=== PATIENT | female | born 1965 | race Caucasian/White ===

== ENCOUNTER 2017-11-04 18:34 | Inpatient (IN) | payer BC ==
[~2017-11-04] VITALS: Ht 149.9 cm; Wt 109.2 kg
[2017-11-04 20:45] VITALS: BP 202/97; PULSE 80; RESP 25; TEMP 98.3; O2SAT 96
[2017-11-04 21:00] VITALS: BP 200/102; PULSE 80; RESP 27; O2SAT 95
[2017-11-04] MEDS ORDERED: MAGNESIUM HYDROXIDE SUSP 30 ML CUP PO PRN (21:15)
[2017-11-04] MEDS ORDERED: ACETAMINOPHEN 325 MG TAB PO PRN (21:15)
[2017-11-04] MEDS ORDERED: ONDANSETRON HCL 4 MG/2 ML VIAL IV PUSH PRN (21:15)
[2017-11-04] MEDS ORDERED: RESP: ALBUTEROL 2.5 MG/IPRATROPIUM 0.5 MG NEB (PRN) INH (21:15)
[2017-11-04] MEDS ORDERED: niCARdipine INJ 25 MG in SODIUM CHLOR 0.9% 250 ML INJ 240 ML IV PRN (21:15)
[2017-11-04] MEDS ORDERED: SODIUM CHLORIDE 0.9% FLUSH 10 ML FLUSH IV FLUSH PRN (21:15)
[2017-11-04] MEDS ORDERED: MISCELLANEOUS NURSING INFORMATION XX SCH (21:15)
[2017-11-04] MEDS ORDERED: TEMAZEPAM 15 MG CAP PO PRN (21:15)
[2017-11-04] MEDS ORDERED: SENNOSIDES 8.6 MG TAB PO PRN (21:15)
[2017-11-04] MEDS ORDERED: CHLORHEXIDINE GLUCONATE 2 % 1 PACK (2 CLOTHS) TOP PRN (21:15)
[2017-11-04] MEDS ORDERED: BISACODYL 10 MG SUPP RECTAL PRN (21:15)
[2017-11-04] MEDS ORDERED: LACTULOSE SYRUP 20 GM/30 ML CUP PO PRN (21:15)
--- NOTE | 2017-11-04 21:20 | PD.CONS ---
HPI Service Critical Care Medicine Consult Requested By Primary Care Physician Non-Staff History of Present Illness Please disregard the note it was started in an error Past Family Social History Allergies: Coded Allergies: Penicillins (Verified Allergy, Severe, Hives, 11/04/17) morphine (Verified Allergy, Severe, Hives, 11/04/17) Kishore Hernandez MD Nov 04, 2017 9:20 pm
[2017-11-04 22:00] VITALS: BP 222/98; PULSE 75; RESP 30; O2SAT 92
[2017-11-04] MEDS: HEPARIN SODIUM - SQ 10,000 UNITS/ML VIAL SQ SCH (22:00)
[2017-11-04] MEDS: LABETALOL HCL 200 MG TAB PO SCH (22:02)
[2017-11-04] MEDS: hydrALAZINE HCL 20 MG/ML VIAL IV PUSH PRN (22:22)
--- NOTE | 2017-11-04 22:27 | HHI.HP ---
[facility] Service Critical Care Medicine Primary Care Physician Non-Staff Admission Diagnosis Diagnosis: Travel History International Travel<30 Days: No Contact w/Intl Traveler <30 Da: No Traveled to Known Affected Are: No History of Present Illness 52-year-old female with approximately 2 day history of frontal headache described as throbbing complaining of mild exertional dyspnea over the past 2 days patient denies any loss of consciousness denies visual changes or diplopia. Patient states she has not seen a physician in the past 10 years. In the emergency department triage patient's BP was noted to be 250/130 but she denies any history of hypertension she denies any history of cardiac disease. Denies any history of stroke. Review of Systems Constitutional: DENIES: Diaphoretic episodes, Fatigue, Fever, Weight gain, Weight loss, Chills, Dizziness, Change in appetite, Night Sweats Endocrine: DENIES: Abnorml menstrual pattern, Heat/cold intolerance, Polydipsia , Polyuria, Polyphagia Eyes: DENIES: Blurred vision, Diplopia, Eye inflammation, Eye pain, Vision loss , Photosensitivity, Double Vision Ears, nose, mouth, throat: DENIES: Tinnitus, Hearing loss, Vertigo, Nasal discharge, Oral lesions, Throat pain, Hoarseness, Ear Pain, Running Nose, Epistaxis, Sinus Pain, Toothache, Odynophagia Respiratory: COMPLAINS OF: Shortness of breath, DENIES: Apneas, Cough, Snoring , Wheezing, Hemoptysis, Sputum production Cardiovascular: DENIES: Chest pain, Palpitations, Syncope, Dyspnea on Exertion , PND, Lower Extremity Edema, Orthopnea, Claudication Gastrointestinal: DENIES: Abdominal pain, Black stools, Bloody stools, Constipation, Diarrhea, Nausea, Vomiting, Difficulty Swallowing, Anorexia Genitourinary: DENIES: Abnormal vaginal bleeding, Dysmenorrhea, Dyspareunia, Sexual dysfunction, Urinary frequency, Urinary incontinence, Urgency, Hematuria , Dysuria, Nocturia, Vaginal discharge Musculoskeletal: DENIES: Joint pain, Muscle aches, Stiffness, Joint Swelling, Back pain, Neck pain Integumentary: DENIES: Abnormal pigmentation, Pruritus, Rash, Nail changes, Breast masses, Breast skin changes, Nipple discharge Hematologic/lymphatic: DENIES: Bruising, Lymphadenopathy Immunologic/allergic: DENIES: Eczema, Urticaria Neurologic: COMPLAINS OF: Headache, DENIES: Abnormal gait, Localized weakness, Paresthesias, Seizures, Speech Problems, Tremor, Poor Balance Psychiatric: DENIES: Anxiety, Confusion, Mood changes, Depression, Hallucinations, Agitation, Suicidal Ideation, Homicidal Ideation, Delusions Past Family Social History Allergies: Coded Allergies: Penicillins (Verified Allergy, Severe, Hives, 11/04/17) morphine (Verified Allergy, Severe, Hives, 11/04/17) Past Medical History None Past Surgical History C-spine fusion for herniated disc Reported Medications Reported Meds & Active Scripts Active No Active Prescriptions or Reported Medications Active Ordered Medications Current Medications Medications (Trade) Dose Ordered Sig/Bernie Route PRN Reason Start Time Stop Time Status Last Admin Dose Admin Nicardipine HCl 25 mg/Sodium Chloride 250 ml @ 50 mls/hr TITRATE PRN IV Blood pressure management 11/04/17 21:15 Sodium Chloride (NS Flush) 2 ml UNSCH PRN IV FLUSH FLUSH AFTER USING IV ACCESS 11/04/17 21:15 Sodium Chloride (NS Flush) 2 ml BID IV FLUSH 11/05/17 09:00 Acetaminophen (Tylenol) 650 mg Q6H PRN PO PAIN 1-10 AND/OR FEVER >101F 11/04/17 21:15 Famotidine (Pepcid Inj) 20 mg Q12HR IV PUSH 11/05/17 09:00 Ondansetron HCl (Zofran Inj) 4 mg Q6H PRN IV PUSH NAUSEA OR VOMITING 11/04/17 21:15 Temazepam (Restoril) 15 mg HS PRN PO INSOMNIA 11/04/17 21:15 Albuterol/ Ipratropium (Duoneb Neb) 1 ampule Q2HR NEB PRN INH WHEEZING 11/04/17 21:15 Heparin Sodium (Porcine) (Heparin Inj) 5,000 units Q8H SQ 11/04/17 22:00 Miscellaneous Information 1 Q361D XX 11/04/17 21:15 11/04/17 21:15 Chlorhexidine Gluconate (Chlorhexidine 2% Cloth) 3 pack Taper DAILY@04 TOP 11/05/17 04:00 11/01/18 03:59 Chlorhexidine Gluconate (Chlorhexidine 2% Cloth) 3 pack UNSCH PRN TOP HYGIENIC CARE 11/04/17 21:15 Senna/Docusate Sodium (Jannie-Colace) 1 tab BID PO 11/05/17 09:00 Magnesium Hydroxide (Milk Of Magnesia Liq) 30 ml Q12H PRN PO Mild constipation 11/04/17 21:15 Sennosides (Senokot) 17.2 mg Q12H PRN PO Moderate constipation 11/04/17 21:15 Bisacodyl (Dulcolax Supp) 10 mg DAILY PRN RECTAL SEVERE CONSITIPATION 11/04/17 21:15 Lactulose (Lactulose Liq) 30 ml DAILY PRN PO SEVERE CONSITIPATION 11/04/17 21:15 Labetalol HCl (Trandate) 200 mg Q12HR PO 11/04/17 21:30 11/04/17 22:02 Amlodipine Besylate (Norvasc) 10 mg DAILY PO 11/04/17 21:30 11/04/17 21:54 Labetalol HCl (Trandate Inj) 10 mg Q4H PRN IV PUSH SBP> OR = 180, DBP> OR = 100 11/04/17 21:30 Hydralazine HCl (Apresoline Inj) 20 mg Q4H PRN IV PUSH SBP>180, DBP>100, HR>65 11/04/17 21:30 11/04/17 22:22 Family History No family history of early coronary artery disease or strokes Social History Negative for tobacco, alcohol or illicit drug abuse Physical Exam Physical Exam GENERAL: Well-nourished, well-developed obese patient. SKIN: Warm and dry. HEAD: Normocephalic. EYES: No scleral icterus. No injection or drainage. NECK: Supple, trachea midline. No JVD or lymphadenopathy. CARDIOVASCULAR: Regular rate and rhythm without murmurs, gallops, or rubs. RESPIRATORY: Breath sounds equal bilaterally. No accessory muscle use. GASTROINTESTINAL: Abdomen soft, non-tender, nondistended. MUSCULOSKELETAL: No cyanosis, or edema. BACK: Nontender without obvious deformity. NEURO EXAM: GCS:15 Mental Status: The patient is alert and oriented to person, place, and time with normal speech. Cranial Nerves: Visual acuity intact bilaterally. Visual prieto normal in all quadrants. Pupils are round, reactive to light. Extraocular movements are intact without ptosis. Hearing is normal bilaterally. Voice is normal. Tongue protrudes midline and moves symmetrically. Reflexes: Biceps, patellar, and Achilles are 2/4 bilaterally. No clonus. Sensation: Sensation is intact bilaterally to pain and light touch. Two-point discrimination is intact. Motor: Good muscle tone. Strength is 5/5 bilaterally. Cerebellar: [id number] and [id number] test normal bilaterally. Laboratory Laboratory Tests Test 11/04/17 21:02 Septic Shock Reassessment Septic shock perfusion: reassessment completed Caprini VTE Risk Assessment Caprini VTE Risk Assessment: Mod/High Risk (score >= 2) Caprini Risk Assessment Model Point Value = 1 Point Value = 2 Point Value = 3 Point Value = 5 Age 41-60 Minor surgery BMI > 25 kg/m2 Swollen legs Varicose veins or History of unexplained or recurrent spontaneous Oral contraceptives or hormone replacement Sepsis (< 1 month) Serious lung disease, including pneumonia (< 1 month) Abnormal pulmonary function Acute myocardial infarction Congestive heart failure (< 1 month) History of inflammatory bowel disease Medical patient at bed rest Age 61-74 Arthroscopic surgery Major open surgery (> 45 min) Laparoscopic surgery (> 45 min) Malignancy Confined to bed (> 72 hours) Immobilizing plaster cast Central venous access Age >= 75 History of VTE Family history of VTE Factor V Leiden Prothrombin [id number] Lupus anticoagulant Anticardiolipin antibodies Elevated serum homocysteine Heparin-induced thrombocytopenia Other congenital or acquired thrombophilia Stroke (< 1 month) Elective arthroplasty Hip, pelvis, or leg fracture Acute spinal cord injury (< 1 month) Prophylaxis Regimen Total Risk Factor Score Risk Level Prophylaxis Regimen 0-1 Low Early ambulation 2 Moderate Order ONE of the following: *Sequential Compression Device (SCD) *Heparin 5000 units SQ BID 3-4 Higher Order ONE of the following medications: *Heparin 5000 units SQ TID *Enoxaparin/Lovenox 40 mg SQ daily (WT < 150 kg, CrCl > 30 mL/min) *Enoxaparin/Lovenox 30 mg SQ daily (WT < 150 kg, CrCl > 10-29 mL/min) *Enoxaparin/Lovenox 30 mg SQ BID (WT < 150 kg, CrCl > 30 mL/min) AND/OR *Sequential Compression Device (SCD) 5 or more Highest Order ONE of the following medications: *Heparin 5000 units SQ TID (Preferred with Epidurals) *Enoxaparin/Lovenox 40 mg SQ daily (WT < 150 kg, CrCl > 30 mL/min) *Enoxaparin/Lovenox 30 mg SQ daily (WT < 150 kg, CrCl > 10-29 mL/min) *Enoxaparin/Lovenox 30 mg SQ BID (WT < 150 kg, CrCl > 30 mL/min) AND *Sequential Compression Device (SCD) Assessment and Plan Assessment and Plan Hypertensive urgency - Initial blood pressure 250/130 - The goal to lower by 25% first 24 hours - Will use labetalol and hydralazine when necessary - Start patient on labetalol and Norvasc - Nicardipine drip when necessary to keep BP goals Throbbing headaches - CT head pending - Tylenol when necessary DVT GI prophylaxis - Teds SCDs - Subcutaneous heparin - Pepcid Critical Care: The total critical care time was 35 minutes. Time to perform other separately billable procedures was not included in the critical care time. Kishore Hernandez MD Nov 04, 2017 10:27 pm
[2017-11-04 23:00] VITALS: BP 171/77; PULSE 80; RESP 24; O2SAT 96
--- NOTE | 2017-11-04 23:38 | RADRPT ---
EXAM DATE/TIME: 11/04/2017 23:28 [place] COMPARISON: No previous studies available for comparison. INDICATIONS : Dizziness; hypertensive. RADIATION DOSE: 38.03 CTDIvol (mGy) MEDICAL HISTORY : Hypertension. SURGICAL HISTORY : None. ENCOUNTER: Initial ACUITY: 1 day PAIN SCALE: 0/10 LOCATION: cranial TECHNIQUE: Multiple contiguous axial images were obtained of the head. Using automated exposure control and adj ustment of the mA and/or kV according to patient size, radiation dose was kept as low as reasonably a chievable to obtain optimal diagnostic quality images. DICOM format image data is available electro nically for review and comparison. FINDINGS: CEREBRUM: The ventricles are normal for age. No evidence of midline shift, mass lesion, hemorrhage or acute in farction. No extra-axial fluid collections are seen. POSTERIOR FOSSA: The cerebellum and brainstem are intact. The 4th ventricle is midline. The cerebellopontine angle i s unremarkable. EXTRACRANIAL: The visualized portion of the orbits is intact. SKULL: The calvaria is intact. No evidence of skull fracture. CONCLUSION: Normal examination for a patient of this age. Gopi Gonzales MD on November 04, 2017 at 23:35 Board Certified Radiologist. This report was verified electronically.
[2017-11-05] VITALS (14 sets, daily range): BP systolic 125–195; BP diastolic 70–88; PULSE 62–80; RESP 16–39; TEMP 96.8–98.5; O2SAT 92–97
[2017-11-05] MEDS: LABETALOL HCL 100 MG/20 ML VIAL IV PUSH PRN ×3 (03:11→20:11)
[2017-11-05] MEDS: CHLORHEXIDINE GLUCONATE 2 % 1 PACK (2 CLOTHS) TOP SCH (04:00)
[2017-11-05 04:05] LABS: BASOPHIL # 0.1 TH/MM3 (0-0.2); BASOPHIL % 0.7 % (0.0-2.0); EOSINOPHIL # 0.2 TH/MM3 (0-0.4); EOSINOPHIL % 1.2 % (0.0-4.0); HEMATOCRIT 35.9 % (35.0-46.0); HEMOGLOBIN 12.2 GM/DL (11.6-15.3); LYMPH % 18.5 % (9.0-44.0); LYMPHOCYTE # 2.7 TH/MM3 (1.0-4.8); MEAN CELL VOLUME 84.1 FL (80.0-100.0); MEAN CORPUSCULAR HEMOGLOBIN 28.6 PG (27.0-34.0); MEAN PLATELET VOLUME 9.1 FL (7.0-11.0); MONO % 4.8 % (0.0-8.0); MONOCYTE # 0.7 TH/MM3 (0-0.9); NEUT % 74.8 % (16.0-70.0); PLATELET COUNT 273 TH/MM3 (150-450); RED BLOOD COUNT 4.27 MIL/MM3 (4.00-5.30); RED CELL DISTRIBUTION WIDTH 15.1 % (11.6-17.2); WHITE BLOOD COUNT 14.7 TH/MM3 (4.0-11.0)
[2017-11-05 04:17] LABS: INTERNATIONAL NORMALIZED RATIO 1.1 RATIO; PROTHROMBIN TIME - PATIENT 10.8 SEC (9.8-11.6)
[2017-11-05 04:25] LABS: ALBUMIN 3.3 GM/DL (3.4-5.0); AST (GOT) 27 U/L (15-37); BLOOD UREA NITROGEN 15 MG/DL (7-18); CALCIUM 8.5 MG/DL (8.5-10.1); CHLORIDE 107 MEQ/L (98-107); CREATININE 0.69 MG/DL (0.50-1.00); GLOMERULAR FILTRATION RATE 89 ML/MIN (>89); GLUCOSE,RANDOM 108 MG/DL (74-106); MAGNESIUM 2.3 MG/DL (1.5-2.5); PHOSPHORUS 3.6 MG/DL (2.5-4.9); SODIUM (NA) 141 MEQ/L (136-145)
[2017-11-05 04:38] LABS: ALKALINE PHOSPHATASE 85 U/L (45-117); ALT (GPT) 50 U/L (10-53); TOTAL BILIRUBIN ADULT 0.5 MG/DL (0.2-1.0); TOTAL PROTEIN 7.1 GM/DL (6.4-8.2)
[2017-11-05] MEDS: HEPARIN SODIUM - SQ 10,000 UNITS/ML VIAL SQ SCH ×3 (06:00→21:07)
[2017-11-05] MEDS: DOCUSATE SODIUM 50 MG/SENNA 8.6 MG TAB PO SCH ×2 (10:07→21:07)
[2017-11-05] MEDS: LABETALOL HCL 200 MG TAB PO SCH ×3 (10:07→21:07)
[2017-11-05] MEDS: SODIUM CHLORIDE 0.9% FLUSH 10 ML FLUSH IV FLUSH SCH ×2 (10:07→21:00)
[2017-11-05] MEDS: FAMOTIDINE 20 MG/2 ML VIAL IV PUSH SCH ×2 (10:07→21:07)
[2017-11-05] MEDS: hydrALAZINE HCL 20 MG/ML VIAL IV PUSH PRN (12:20)
--- NOTE | 2017-11-05 14:44 | HHI.CCPN ---
Subjective Remarks/Hospital Course 52-year-old female with approximately 2 day history of frontal headache described as throbbing complaining of mild exertional dyspnea over the past 2 days patient denies any loss of consciousness denies visual changes or diplopia. Patient states she has not seen a physician in the past 10 years. In the emergency department triage patient's BP was noted to be 250/130 but she denies any history of hypertension she denies any history of cardiac disease. Denies any history of stroke. Subjective: 11/05: No acute events overnight. Oral antihypertensive medications instituted. Labetalol frequency increased to every 6 hours. Patient tolerating diet. Objective Vital Signs Date Time Temp Pulse Resp B/P (MAP) Pulse Ox O2 Delivery O2 Flow Rate FiO2 11/05/17 08:00 98.5 71 26 179/84 (115) 93 Intake and Output 11/05/17 11/05/17 11/06/17 08:00 16:00 00:00 Intake Total 720 ml Balance 720 ml Result Diagram: 11/05/17 0330 11/05/17 0330 Imaging Last Impressions Head CT 11/04/17 0000 Signed Impressions: Service Date/Time: Saturday, November 04, 2017 23:28 - CONCLUSION: Normal examination for a patient of this age. Gopi Gonzales MD Objective Remarks GENERAL: Well-nourished, well-developed obese patient, nothing up in bed eating lunch in no apparent distress SKIN: Warm and dry. HEAD: Normocephalic. EYES: No scleral icterus. No injection or drainage. NECK: Supple, trachea midline. No JVD or lymphadenopathy. CARDIOVASCULAR: Regular rate and rhythm without murmurs, gallops, or rubs. RESPIRATORY: Breath sounds equal bilaterally. No accessory muscle use. GASTROINTESTINAL: Abdomen soft, non-tender, protuberant, nondistended. MUSCULOSKELETAL: No cyanosis, or edema. BACK: Nontender without obvious deformity. NEURO EXAM: GCS:15 Mental Status: The patient is alert and oriented to person, place, and time with normal speech. Cranial Nerves: Visual acuity intact bilaterally. Visual prieto normal in all quadrants. Pupils are round, reactive to light. Extraocular movements are intact without ptosis. Hearing is normal bilaterally. Voice is normal. Tongue protrudes midline and moves symmetrically. Reflexes: Biceps, patellar, and Achilles are 2/4 bilaterally. No clonus. Sensation: Sensation is intact bilaterally to pain and light touch. Two-point discrimination is intact. Motor: Good muscle tone. Strength is 5/5 bilaterally. Cerebellar: [id number]-[id number] and nceb-[id number] test normal bilaterally. A/P Assessment and Plan Hypertensive urgency-resolved - Initial blood pressure 250/130 - The goal to lower by 25% first 24 hours - Will use labetalol and hydralazine when necessary - labetalol 200 mg every 6 hours and Norvasc 10 mg daily - Nicardipine drip is continued Throbbing headaches-resolved - 11/04 CT head-negative - Tylenol when necessary DVT GI prophylaxis - Teds SCDs - Subcutaneous heparin - Pepcid Critical Care: Level II follow-up Planned transfer to [facility]., planned transfer to [facility] floor when bed available. Physician Kavitha Jimenez MD Nov 05, 2017 14:44
[2017-11-06] VITALS (8 sets, daily range): BP systolic 145–195; BP diastolic 65–89; PULSE 70–80; RESP 18–26; TEMP 98.1–98.9; O2SAT 88–97
[2017-11-06] MEDS: hydrALAZINE HCL 20 MG/ML VIAL IV PUSH PRN (00:35)
[2017-11-06] MEDS: LABETALOL HCL 200 MG TAB PO SCH ×4 (03:00→22:07)
[2017-11-06] MEDS: CHLORHEXIDINE GLUCONATE 2 % 1 PACK (2 CLOTHS) TOP SCH (04:00)
[2017-11-06] MEDS: HEPARIN SODIUM - SQ 10,000 UNITS/ML VIAL SQ SCH ×3 (05:52→22:09)
[2017-11-06] MEDS: DOCUSATE SODIUM 50 MG/SENNA 8.6 MG TAB PO SCH ×2 (08:48→21:00)
[2017-11-06] MEDS: FAMOTIDINE 20 MG/2 ML VIAL IV PUSH SCH ×2 (08:48→22:08)
[2017-11-06] MEDS: SODIUM CHLORIDE 0.9% FLUSH 10 ML FLUSH IV FLUSH SCH ×2 (08:48→22:08)
[2017-11-06 14:07] LABS: HEMOGLOBIN 12.2 GM/DL (11.6-15.3); MEAN CELL VOLUME 85.2 FL (80.0-100.0); MEAN CORPUSCULAR HEMOGLOBIN 28.9 PG (27.0-34.0); MEAN CORPUSCULAR HGB CONC 33.9 % (32.0-36.0); MEAN PLATELET VOLUME 9.2 FL (7.0-11.0); PLATELET COUNT 274 TH/MM3 (150-450); RED BLOOD COUNT 4.23 MIL/MM3 (4.00-5.30); RED CELL DISTRIBUTION WIDTH 15.6 % (11.6-17.2); WHITE BLOOD COUNT 13.2 TH/MM3 (4.0-11.0)
[2017-11-06 14:28] LABS: BICARBONATE 24.9 MEQ/L (21.0-32.0); BLOOD UREA NITROGEN 19 MG/DL (7-18); CALCIUM 9.1 MG/DL (8.5-10.1); CHLORIDE 106 MEQ/L (98-107); CREATININE 0.72 MG/DL (0.50-1.00); GLOMERULAR FILTRATION RATE 85 ML/MIN (>89); GLUCOSE,RANDOM 98 MG/DL (74-106); SODIUM (NA) 138 MEQ/L (136-145)
[2017-11-06 16:36] LABS: HEMOGLOBIN A1C 5.4 % (4.3-6.0)
[2017-11-06] MEDS ORDERED: DOXAZOSIN MESYLATE 2 MG TAB PO ONE (16:45)
--- NOTE | 2017-11-06 17:42 | HHI.PR ---
Subjective Remarks Denies cp/sob. BP still elevated into the 160's systolic bp. Objective Vitals Vital Signs Date Time Temp Pulse Resp B/P (MAP) Pulse Ox O2 Delivery O2 Flow Rate FiO2 11/06/17 12:00 80 11/06/17 12:00 98.3 72 21 166/80 (108) 96 11/06/17 10:00 80 11/06/17 08:00 98.1 78 24 150/71 (97) 95 11/06/17 08:00 78 11/06/17 04:00 98.3 75 25 145/65 (91) 88 11/06/17 00:00 98.4 76 26 195/89 (124) 95 11/05/17 20:00 98.0 80 30 184/77 (112) 95 11/05/17 18:00 72 I/O 11/05/17 11/05/17 11/05/17 11/06/17 11/06/17 11/06/17 07:00 15:00 23:00 07:00 15:00 23:00 Intake Total 720 ml 675 ml 480 ml Balance 720 ml 675 ml 480 ml Intake Oral 720 ml 675 ml 480 ml # Voids 10 9 6 # Bowel Movements 2 0 Result Diagram: 11/06/17 1332 11/06/17 1332 Imaging Last Impressions Head CT 11/04/17 0000 Signed Impressions: Service Date/Time: Saturday, November 04, 2017 23:28 - CONCLUSION: Normal examination for a patient of this age. Gopi Gonzales MD Objective Remarks NAD AAox3 obese Clear lungs S1S2 RRR, no MRG no edema in extremities or JVD Medications and IVs Current Medications Medications (Trade) Dose Ordered Sig/Bernie Route Start Time Stop Time Status Last Admin (NS Flush) 2 ml UNSCH PRN IV FLUSH 11/04/17 21:15 (NS Flush) 2 ml BID IV FLUSH 11/05/17 09:00 11/06/17 08:48 (Tylenol) 650 mg Q6H PRN PO 11/04/17 21:15 (Pepcid Inj) 20 mg Q12HR IV PUSH 11/05/17 09:00 11/06/17 08:48 (Zofran Inj) 4 mg Q6H PRN IV PUSH 11/04/17 21:15 (Restoril) 15 mg HS PRN PO 11/04/17 21:15 (Duoneb Neb) 1 ampule Q2HR NEB PRN INH 11/04/17 21:15 (Heparin Inj) 5,000 units Q8H SQ 11/04/17 22:00 11/06/17 14:14 Miscellaneous Information 1 Q361D XX 11/04/17 21:15 11/04/17 21:15 (Chlorhexidine 2% Cloth) 3 pack Taper DAILY@04 TOP 11/05/17 04:00 11/01/18 03:59 11/06/17 04:00 (Chlorhexidine 2% Cloth) 3 pack UNSCH PRN TOP 11/04/17 21:15 (Jannie-Colace) 1 tab BID PO 11/05/17 09:00 11/05/17 21:07 (Milk Of Magnesia Liq) 30 ml Q12H PRN PO 11/04/17 21:15 (Senokot) 17.2 mg Q12H PRN PO 11/04/17 21:15 (Dulcolax Supp) 10 mg DAILY PRN RECTAL 11/04/17 21:15 (Lactulose Liq) 30 ml DAILY PRN PO 11/04/17 21:15 (Norvasc) 10 mg DAILY PO 11/04/17 21:30 11/06/17 08:47 (Apresoline Inj) 20 mg Q4H PRN IV PUSH 11/04/17 21:30 11/06/17 00:35 (Trandate) 200 mg Q6H PO 11/05/17 15:00 11/06/17 14:15 (Cardura) 2 mg DAILY PO 11/07/17 09:00 A/P Problem List: (1) Hypertensive urgency ICD Code: I16.0 - Hypertensive urgency Status: Resolved (2) Headache ICD Code: R51 - Headache Status: Resolved Assessment and Plan Hypertensive urgency-resolved - Initial blood pressure 250/130 - The goal to lower by 25% first 24 hours - Will use labetalol and hydralazine when necessary - labetalol 200 mg every 6 hours and Norvasc 10 mg daily - Nicardipine drip is continued 11/06 BP still elevated. Will add Cardura 2 mg po daily and continue amlodipine and Labetalol. Patient still required IV PRN medication today. Throbbing headaches-resolved - 11/04 CT head-negative - Tylenol when necessary 11/06 Stable. RUST resolved. DVT GI prophylaxis - Teds SCDs - Subcutaneous heparin - Pepcid Discharge Planning DC pending bp improvement. Possible DC in am. Jorge Katz MD Nov 06, 2017 17:42
[2017-11-06 23:26] LABS: BILIRUBIN, URINE NEG (NEG); BLOOD, URINE NEG (NEG); GLUCOSE,URINE NEG (NEG); KETONE, URINE NEG (NEG); NITRITE,URINE NEG (NEG); PH, URINE 5.5 (5.0-8.5); SQUAMOUS EPITHELIAL CELL URINE 2 /hpf (0-5); URINE COLOR LIGHT-YELLOW (YELLW/STRAW); URINE LEUKOCYTE ESTERASE SMALL (NEG)
[2017-11-07] VITALS (13 sets, daily range): BP systolic 141–184; BP diastolic 63–94; PULSE 57–78; RESP 18–20; TEMP 97.2–98.5; O2SAT 93–97
[2017-11-07] MEDS: LABETALOL HCL 200 MG TAB PO SCH ×4 (03:48→21:42)
[2017-11-07] MEDS: CHLORHEXIDINE GLUCONATE 2 % 1 PACK (2 CLOTHS) TOP SCH (03:55)
[2017-11-07] MEDS: HEPARIN SODIUM - SQ 10,000 UNITS/ML VIAL SQ SCH ×3 (05:14→21:44)
[2017-11-07] MEDS: SODIUM CHLORIDE 0.9% FLUSH 10 ML FLUSH IV FLUSH SCH ×2 (07:28→21:44)
[2017-11-07] MEDS: FAMOTIDINE 20 MG/2 ML VIAL IV PUSH SCH ×2 (08:22→21:00)
[2017-11-07] MEDS: DOCUSATE SODIUM 50 MG/SENNA 8.6 MG TAB PO SCH ×2 (08:22→21:00)
[2017-11-07] MEDS ORDERED: DOXAZOSIN MESYLATE 2 MG TAB PO SCH (09:00)
[2017-11-07 09:12] LABS: AUTOMATED NEUTROPHIL # 7.4 TH/MM3 (1.8-7.7); BASOPHIL # 0.1 TH/MM3 (0-0.2); BASOPHIL % 1.3 % (0.0-2.0); EOSINOPHIL # 0.4 TH/MM3 (0-0.4); EOSINOPHIL % 3.4 % (0.0-4.0); HEMATOCRIT 35.1 % (35.0-46.0); HEMOGLOBIN 11.7 GM/DL (11.6-15.3); MEAN CELL VOLUME 86.1 FL (80.0-100.0); MEAN CORPUSCULAR HEMOGLOBIN 28.7 PG (27.0-34.0); MEAN CORPUSCULAR HGB CONC 33.4 % (32.0-36.0); MEAN PLATELET VOLUME 9.3 FL (7.0-11.0); MONO % 6.9 % (0.0-8.0); MONOCYTE # 0.7 TH/MM3 (0-0.9); NEUT % 69.4 % (16.0-70.0); PLATELET COUNT 230 TH/MM3 (150-450); RED BLOOD COUNT 4.07 MIL/MM3 (4.00-5.30); RED CELL DISTRIBUTION WIDTH 14.7 % (11.6-17.2); WHITE BLOOD COUNT 10.7 TH/MM3 (4.0-11.0)
[2017-11-07 09:47] LABS: ALKALINE PHOSPHATASE 78 U/L (45-117); ALT (GPT) 38 U/L (10-53); PHOSPHORUS 4.5 MG/DL (2.5-4.9); TOTAL BILIRUBIN ADULT 0.6 MG/DL (0.2-1.0); TOTAL PROTEIN 6.9 GM/DL (6.4-8.2)
[2017-11-07 09:57] LABS: ALBUMIN 3.2 GM/DL (3.4-5.0); AST (GOT) 45 U/L (15-37); BICARBONATE 23.8 MEQ/L (21.0-32.0); BLOOD UREA NITROGEN 18 MG/DL (7-18); CALCIUM 8.7 MG/DL (8.5-10.1); CHLORIDE 107 MEQ/L (98-107); CREATININE 0.85 MG/DL (0.50-1.00); GLOMERULAR FILTRATION RATE 70 ML/MIN (>89); GLUCOSE,RANDOM 104 MG/DL (74-106); MAGNESIUM 2.6 MG/DL (1.5-2.5); SODIUM (NA) 139 MEQ/L (136-145)
--- NOTE | 2017-11-07 13:10 | HHI.PR ---
Subjective Remarks BP still severely elevated. Patient denies cp/sob. Objective Vitals Vital Signs Date Time Temp Pulse Resp B/P (MAP) Pulse Ox O2 Delivery O2 Flow Rate FiO2 11/07/17 10:34 71 11/07/17 08:00 98.2 77 20 184/87 (119) 97 11/07/17 05:11 70 18 141/63 (89) 11/07/17 04:00 66 11/07/17 03:34 98.3 72 18 180/81 (114) 95 11/07/17 00:11 98.5 76 18 173/77 (109) 93 11/07/17 00:00 78 11/06/17 21:34 98.6 70 18 181/82 (115) 97 11/06/17 20:00 73 11/06/17 16:00 98.9 73 20 162/83 (109) 96 I/O 11/06/17 11/06/17 11/06/17 11/07/17 11/07/17 11/07/17 07:00 15:00 23:00 07:00 15:00 23:00 Intake Total 480 ml 480 ml Output Total 900 ml Balance 480 ml -420 ml Intake Oral 480 ml 480 ml Output Urine Total 900 ml # Voids 6 # Bowel Movements 0 0 Result Diagram: 11/07/17 0855 11/07/17 0855 Imaging Last Impressions Head CT 11/04/17 0000 Signed Impressions: Service Date/Time: Saturday, November 04, 2017 23:28 - CONCLUSION: Normal examination for a patient of this age. Gopi Gonzales MD Objective Remarks NAD AAox3 obese Clear lungs S1S2 RRR, no MRG no edema in extremities or JVD Medications and IVs Current Medications Medications (Trade) Dose Ordered Sig/Bernie Route Start Time Stop Time Status Last Admin (NS Flush) 2 ml UNSCH PRN IV FLUSH 11/04/17 21:15 (NS Flush) 2 ml BID IV FLUSH 11/05/17 09:00 11/07/17 07:28 (Tylenol) 650 mg Q6H PRN PO 11/04/17 21:15 (Pepcid Inj) 20 mg Q12HR IV PUSH 11/05/17 09:00 11/07/17 08:22 (Zofran Inj) 4 mg Q6H PRN IV PUSH 11/04/17 21:15 (Restoril) 15 mg HS PRN PO 11/04/17 21:15 11/07/17 01:00 (Duoneb Neb) 1 ampule Q2HR NEB PRN INH 11/04/17 21:15 (Heparin Inj) 5,000 units Q8H SQ 11/04/17 22:00 11/06/17 22:09 Miscellaneous Information 1 Q361D XX 11/04/17 21:15 11/04/17 21:15 (Chlorhexidine 2% Cloth) 3 pack Taper DAILY@04 TOP 11/05/17 04:00 11/01/18 03:59 11/06/17 04:00 (Chlorhexidine 2% Cloth) 3 pack UNSCH PRN TOP 11/04/17 21:15 (Jannie-Colace) 1 tab BID PO 11/05/17 09:00 11/07/17 08:22 (Milk Of Magnesia Liq) 30 ml Q12H PRN PO 11/04/17 21:15 (Senokot) 17.2 mg Q12H PRN PO 11/04/17 21:15 (Dulcolax Supp) 10 mg DAILY PRN RECTAL 11/04/17 21:15 (Lactulose Liq) 30 ml DAILY PRN PO 11/04/17 21:15 (Norvasc) 10 mg DAILY PO 11/04/17 21:30 11/07/17 08:22 (Apresoline Inj) 20 mg Q4H PRN IV PUSH 11/04/17 21:30 11/06/17 00:35 (Trandate) 200 mg Q6H PO 11/05/17 15:00 11/07/17 08:22 (Cardura) 2 mg DAILY PO 11/07/17 09:00 11/07/17 08:22 A/P Problem List: (1) Hypertensive urgency ICD Code: I16.0 - Hypertensive urgency Status: Resolved (2) Headache ICD Code: R51 - Headache Status: Resolved Assessment and Plan Hypertensive urgency-resolved - Initial blood pressure 250/130 - The goal to lower by 25% first 24 hours - Will use labetalol and hydralazine when necessary - Started initially on labetalol 200 mg every 6 hours and Norvasc 10 mg daily - Nicardipine drip is continued 11/06 BP still elevated. Will add Cardura 2 mg po daily and continue amlodipine and Labetalol. Patient still required IV PRN medication today. 11/07 pressure still severely elevated in the 180 systolic. Increase Cardura to 4 milligrams p.o. daily. I will also change labetalol to 1400 mg p.o. 3 times daily. Continue hydralazine as needed and continue amlodipine 10 minutes p.o. daily. Throbbing headaches-resolved - 11/04 CT head-negative - Tylenol when necessary 11/06 Stable. RUST resolved. DVT GI prophylaxis - Teds SCDs - Subcutaneous heparin - Pepcid Discharge Planning DC pending bp improvement. Possible DC in am. Jorge Katz MD Nov 07, 2017 13:10
[2017-11-07] MEDS ORDERED: DOXAZOSIN MESYLATE 2 MG TAB PO ONE (13:15)
[2017-11-08] VITALS: BP 128/60; PULSE 66; PULSE 69; RESP 18; TEMP 97.8; O2SAT 97
[2017-11-08] MEDS: CHLORHEXIDINE GLUCONATE 2 % 1 PACK (2 CLOTHS) TOP SCH (03:28)
[2017-11-08 04:00] VITALS: PULSE 61
[2017-11-08] MEDS: HEPARIN SODIUM - SQ 10,000 UNITS/ML VIAL SQ SCH ×2 (05:13→15:03)
[2017-11-08] MEDS: LABETALOL HCL 200 MG TAB PO SCH ×2 (05:59→15:02)
[2017-11-08 08:00] VITALS: BP 140/69; PULSE 54; RESP 18; TEMP 97.6; O2SAT 95
[2017-11-08 08:25] LABS: BICARBONATE 23.4 MEQ/L (21.0-32.0); CALCIUM 8.2 MG/DL (8.5-10.1); CREATININE 0.75 MG/DL (0.50-1.00)
[2017-11-08] MEDS: DOCUSATE SODIUM 50 MG/SENNA 8.6 MG TAB PO SCH (09:00)
[2017-11-08] MEDS ORDERED: DOXAZOSIN MESYLATE 4 MG TAB PO SCH (09:00)
[2017-11-08] MEDS: SODIUM CHLORIDE 0.9% FLUSH 10 ML FLUSH IV FLUSH SCH (09:00)
[2017-11-08] MEDS: FAMOTIDINE 20 MG/2 ML VIAL IV PUSH SCH (09:00)
[2017-11-08 10:30] VITALS: BP_SYST 153; BP_SYST 170; BP_DIAS 82; BP_DIAS 88; PULSE 72
[2017-11-08 11:59] VITALS: BP 167/87; PULSE 61; RESP 17; TEMP 97.8; O2SAT 98
[2017-11-08] MEDS ORDERED: CARD4TAB2 PO (13:14)
[2017-11-08] MEDS ORDERED: AMLO10 PO (13:14)
[2017-11-08] MEDS ORDERED: LABE200T2 PO (13:14)
--- NOTE | 2017-11-08 13:26 | HHI.PR ---
Subjective Remarks Follow-up hypertensive urgency 11/08/17-patient seen and examined, she denies any chest pain, shortness of breath. She denies any heart palpitation. Discussed with patient regarding lifestyle modification. states, she has initial visit with Objective Vitals Vital Signs Date Time Temp Pulse Resp B/P (MAP) Pulse Ox O2 Delivery O2 Flow Rate FiO2 11/08/17 11:59 97.8 61 17 167/87 (113) 98 11/08/17 10:30 153/82 (105) 170/88 (115) 11/08/17 10:30 72 153/82 (105) 170/88 (115) 11/08/17 08:00 97.6 54 18 140/69 (92) 95 11/08/17 04:00 61 11/08/17 00:00 66 11/08/17 00:00 97.8 69 18 128/60 (82) 97 11/07/17 20:00 98.0 76 18 157/94 (115) 96 11/07/17 20:00 Room Air 11/07/17 18:24 178/80 (112) Automatic Cuff 11/07/17 16:34 57 11/07/17 16:00 97.2 65 20 175/80 (111) 96 I/O 11/07/17 11/07/17 11/07/17 11/08/17 11/08/17 11/08/17 07:00 15:00 23:00 07:00 15:00 23:00 Intake Total 480 ml 720 ml 240 ml Output Total 900 ml 600 ml 900 ml Balance -420 ml 120 ml -660 ml Intake Oral 480 ml 720 ml 240 ml Output Urine Total 900 ml 600 ml 900 ml # Bowel Movements 0 1 0 Result Diagram: 11/07/17 0855 11/08/17 0636 Imaging Last Impressions Head CT 11/04/17 0000 Signed Impressions: Service Date/Time: Saturday, November 04, 2017 23:28 - CONCLUSION: Normal examination for a patient of this age. Gopi Gonzales MD Objective Remarks GENERAL: NAD SKIN: Warm and dry. HEAD: Normocephalic. EYES: No scleral icterus. No injection or drainage. NECK: Supple, trachea midline. No JVD or lymphadenopathy. CARDIOVASCULAR: Regular rate and rhythm without murmurs, gallops, or rubs. RESPIRATORY: Breath sounds equal bilaterally. No accessory muscle use. GASTROINTESTINAL: Abdomen soft, non-tender, nondistended. MUSCULOSKELETAL: No cyanosis, or edema. BACK: Nontender without obvious deformity. No CVA tenderness. A/P Problem List: (1) Hypertensive urgency ICD Code: I16.0 - Hypertensive urgency Status: Resolved (2) Headache ICD Code: R51 - Headache Status: Resolved Assessment and Plan 52 yrs old female Hypertensive urgency-resolved Continue Cardura to 4 milligrams p.o. daily, Labetalol 400 mg p.o. 3 times daily , Norvasc 10mg daily. Continue hydralazine as needed Throbbing headaches-resolved - 11/04 CT head-negative - Tylenol when necessary DVT GI prophylaxis - Teds SCDs - Subcutaneous heparin - Federico Rosado MD Nov 08, 2017 13:26
--- NOTE | 2017-11-08 13:28 | HHI.DS ---
Discharge Summary Admission Date Nov 04, 2017 at 20:39 Discharge Date: Nov 08, 2017 Admitting Diagnosis (1) Hypertensive urgency ICD Code: I16.0 - Hypertensive urgency Status: Resolved (2) Headache ICD Code: R51 - Headache Status: Resolved Procedures none Brief History - From Admission 52-year-old female with approximately 2 day history of frontal headache described as throbbing complaining of mild exertional dyspnea over the past 2 days patient denies any loss of consciousness denies visual changes or diplopia. Patient states she has not seen a physician in the past 10 years. In the emergency department triage patient's BP was noted to be 250/130 but she denies any history of hypertension she denies any history of cardiac disease. Denies any history of stroke. CBC/BMP: 11/07/17 0855 11/08/17 0636 Significant Findings Laboratory Tests Test 11/06/17 13:32 11/06/17 22:30 11/07/17 08:55 11/08/17 06:36 White Blood Count 13.2 TH/MM3 (4.0-11.0) Blood Urea Nitrogen 19 MG/DL (7-18) Estimat Glomerular Filtration Rate 85 ML/MIN (>89) 70 ML/MIN (>89) 81 ML/MIN (>89) Urine Leukocyte Esterase SMALL (NEG) Albumin 3.2 GM/DL (3.4-5.0) Magnesium Level 2.6 MG/DL (1.5-2.5) Aspartate Amino Transf (AST/SGOT) 45 U/L (15-37) Calcium Level 8.2 MG/DL (8.5-10.1) Chloride Level 110 MEQ/L (98-107) Imaging Last Impressions Head CT 11/04/17 0000 Signed Impressions: Service Date/Time: Saturday, November 04, 2017 23:28 - CONCLUSION: Normal examination for a patient of this age. Gopi Gonzales MD PE at Discharge GENERAL: NAD SKIN: Warm and dry. HEAD: Normocephalic. EYES: No scleral icterus. No injection or drainage. NECK: Supple, trachea midline. No JVD or lymphadenopathy. CARDIOVASCULAR: Regular rate and rhythm without murmurs, gallops, or rubs. RESPIRATORY: Breath sounds equal bilaterally. No accessory muscle use. GASTROINTESTINAL: Abdomen soft, non-tender, nondistended. MUSCULOSKELETAL: No cyanosis, or edema. BACK: Nontender without obvious deformity. No CVA tenderness. Hospital Course Alexandre admitted secondary to hypertensive urgency for which was initially under the care of critical care medicine. Initially on IV drip medication and patient was switched to by mouth and continue on Norvasc 10 mg, labetalol and Cardura which were adjusted accordingly. DVT prophylaxis were provided. Prior to discharge, patient's condition improved. Pt Condition on Discharge: Stable Discharge Disposition: Discharge Home Discharge Time: <= 30 minutes Discharge Instructions DIET: Follow Instructions for: Heart Healthy Diet Activities you can perform: Regular-No Restrictions Follow up Referrals: PCP Follow-up - 1 Week New Medications: Amlodipine (Norvasc) 10 Mg Tab 10 MG PO DAILY for Blood Pressure Management, #30 TAB 11 Refills Doxazosin (Cardura) 4 Mg Tab 4 MG PO DAILY for Blood Pressure Management, #30 TAB 5 Refills Labetalol (Labetalol) 200 Mg Tab 400 MG PO Q8HR for Blood Pressure Management, #90 TAB 5 Refills Federico Crisostomo MD Nov 08, 2017 13:28
== END 2017-11-08 15:29 | disposition home or self-care (01) | DRG 305 ==
LOC: NEDDLT 20:29 → HIMN 20:39 → N04B 11-06 14:32
PROVIDERS: ADMIT Hospitalist; ATTEND Hospitalist
DX: I16.0 Hypertensive urgency (principal); Z68.42 Body mass index [BMI] 45.0-49.9, adult; E66.9 Obesity, unspecified; R51 Headache; D72.829 Elevated white blood cell count, unspecified
CPT/HCPCS: 70450; 71045; 80048; 80053; 81001; 83036; 83735; 83880; 84100; 84484; 85025; 85027; 85610; 85730; 87641; 93005; 96365; 96366; 96375; J0360; J1644; J1940; J7050